=== PATIENT | female | born 2000 | race Caucasian/White ===

== ENCOUNTER 2019-04-06 19:09 | Emergency (ER) | payer MEDICAID ==
[~2019-04-06] VITALS: Ht 167.6 cm; Wt 58.0 kg
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
[2019-04-06] MEDS ORDERED: TETanus/Pertussis (Acell)/Diphther VAC/PF (Tdap-Adult) 0.5ml syringe IM ONE (20:20)
[2019-04-06] MEDS ORDERED: LIDOcaine 1% w/epiNEPHrine 1:200,000 30ml vial IM ONE (20:20)
--- NOTE | 2019-04-06 20:25 | NUR ---
ETA FOR [facility] IS 30MINS
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
[2019-04-06 21:08] LABS: CLARITY,URINE CLEAR (Clear); COLOR,URINE YELLOW (Yellow); GLUCOSE, URINE NEGATIVE (Neg); KETONES,URINE NEGATIVE (Neg); LEUKOCYTE ESTERASE ,URINE NEGATIVE (Neg); NITRITES, URINE NEGATIVE (Neg); OCCULT BLOOD,URINE NEGATIVE (Neg); PH,URINE 7.5 (4.8-8.0); PROTEIN,URINE TRACE mg/dl (Neg); UROBILINOGEN,URINE 0.2 E.U/dL (0.2-1.0)
[2019-04-06 21:09] LABS: URINE HCG NEGATIVE (NEG)
[2019-04-06 21:11] LABS: BASOPHILS % (AUTO) 0.4 % (0-1); EOSINOPHILS # (AUTO) 0.3 X10'3 (0-0.9); EOSINOPHILS % (AUTO) 5.3 % (0-6); HEMATOCRIT 37.7 % (35.0-45.0); HEMOGLOBIN 12.5 g/dl (12.0-16.0); LYMPHOCYTES # (AUTO) 1.1 X10'3 (1.1-4.8); LYMPHOCYTES % (AUTO) 20.7 % (21-51); MEAN CORPUSCULAR HEMOGLOBIN 28.1 PG (27.0-31.0); MEAN CORPUSCULAR HGB CONC 33.1 g/dL (33.0-36.5); MEAN CORPUSCULAR VOLUME 84.9 FL (78-98); MEAN PLATELET VOLUME 7.9 FL (7.4-10.4); MONOCYTES # (AUTO) 0.5 X10'3 (0-0.9); MONOCYTES % (AUTO) 8.7 % (2-12); NEUTROPHILS # (AUTO) 3.4 X10'3 (1.8-7.7); NEUTROPHILS % (AUTO) 64.9 % (42-75); PLATELET COUNT 328 X10'3 (140-440); RED BLOOD COUNT 4.43 X10'6 (4.20-5.60); RED CELL DISTRIBUTION WIDTH 14.9 % (11.5-14.5); WHITE BLOOD COUNT 5.3 X10'3 (4.5-11.0)
[2019-04-06 21:15] LABS: UA COLLECTION TYPE CLN CATCH MIDSTREAM
[2019-04-06 21:16] LABS: AMORPHOUS PHOSPHATES 1+; BACTERIA,URINE FEW /HPF (Neg); RBC,URINE NONE SEEN /HPF (0-2); SQUAMOUS EPITHELIAL CELL,UR NONE SEEN /LPF (FEW); WBC,URINE NONE SEEN /HPF (0-4)
[2019-04-06 21:22] LABS: ALANINE AMINOTRANSFERASE 27 U/L (12-78); ALBUMIN 3.6 G/DL (3.4-5.0); ALKALINE PHOSPHATASE 117 IU/L (20-180); ANION GAP 8 (8-16); ASPARTATE AMINO TRANSFERASE 15 U/L (10-37); BILIRUBIN,TOTAL 0.4 MG/DL (0.1-1.0); BLOOD UREA NITROGEN 12 MG/DL (7-18); BUN/CREATININE RATIO 13.5 (6.6-38.0); CALCIUM 9.1 MG/DL (8.5-10.1); CHLORIDE 106 MMOL/L (99-107); CREATININE 0.89 MG/DL (0.40-0.90); GLUCOSE 103 MG/DL (70-104); POTASSIUM 4.1 MMOL/L (3.5-5.1); SODIUM 138 MMOL/L (135-145); TOTAL CARBON DIOXIDE 24.4 MMOL/L (24-32); TOTAL PROTEIN 7.1 G/DL (6.4-8.2); eGFR 81 ML/MIN
[2019-04-06 21:23] LABS: URINE AMPHETAMINE SCREEN NEGATIVE (Neg); URINE BARBITUATE SCREEN NEGATIVE (Neg); URINE BENZODIAZEPINES SCREEN POSITIVE (Neg); URINE CANNABINOID SCREEN NEGATIVE (Neg); URINE COCAINE SCREEN NEGATIVE (Neg); URINE METHADONE SCREEN NEGATIVE (Neg); URINE OPIATE SCREEN POSITIVE (Neg); URINE PHENCYCLIDINE SCREEN NEGATIVE (Neg)
[2019-04-06 21:29] LABS: ETHANOL < 0.010 GM/DL (0.0-0.010)
[2019-04-06 21:32] LABS: ACETAMINOPHEN < 2.0 UG/ML (10-30)
--- NOTE | 2019-04-06 22:00 | NUR ---
[facility] SPOKE WITH PATIENT WITHOUT HER PARENTS PRESENT
--- NOTE | 2019-04-06 22:10 | NUR ---
[id number] [facility] CASE # - OFFICERS LEFT AND DID NOT TELL RN IF THEY WERE AUTHORIZING A KIT OR NOT. CALL PLACED TO RICH[facility] AND THEY ARE GOING TO HAVE THE OFFICER CALL US BACK.
[2019-04-06] MEDS ORDERED: cloNIDine 0.1 mg tablet PO STA (22:11)
[2019-04-06] MEDS ORDERED: nicotine 14mg patch - 24hr TD ONE (22:20)
--- NOTE | 2019-04-06 22:39 | NUR ---
Packet faxed to [facility]. Unable to confirm receipt of packet as [id number] hours.
[2019-04-06] MEDS ORDERED: Melatonin 3mg tablet PO STA (22:40)
--- NOTE | 2019-04-06 22:53 | NUR ---
PER PAYAM HERNANDEZ STATES NO SART KIT AUTHORIZED
--- NOTE | 2019-04-06 23:25 | NUR ---
MOTHER AAMDA ROME CELL [phone] FATHER HOLLAND OBANDODEN CELL [phone] PARENTS LEFT, PATIENT LYING ON LEFT SIDE AND PATIENT STATING THAT SHE WANTS TO GET SOME SLEEP IF SHE CAN
[2019-04-06] MEDS ORDERED: azithromycin 250mg tablet PO ONE (23:50)
[2019-04-06] MEDS ORDERED: CefTRIAXone 250MG IM Kit w/LIDOcaine IM ONE (23:50)
--- NOTE | 2019-04-07 00:01 | NUR ---
PATIENT APPEARS TO BE SLEEPING ON HER RIGHT SIDE, RR EVEN AND UNLABORED
--- NOTE | 2019-04-07 02:00 | NUR ---
PATIENT APPEARS TO BE SLEEPING ON HER BACK RR EVEN AND UNLABORED
--- NOTE | 2019-04-07 04:07 | NUR ---
PATIENT APPEARS TO BE SLEEPING ON HER RIGHT SIDE. RR EVEN AND UNLABORED.
[2019-04-07] MEDS: cloNIDine 0.1 mg tablet PO PRN ×2 (05:06→19:28)
[2019-04-07] MEDS ORDERED: buprenorphine/naloxone 8mg/2mg SL tablet SL PRN (05:20)
--- NOTE | 2019-04-07 06:30 | NUR ---
Asleep upon change of shift observation. Color and breathing WNL. In line of sight of staff. Will continue to monitor.
[2019-04-07] MEDS ORDERED: ondansetron 4mg rapidly disintigrating tab PO ONE (07:45)
[2019-04-07] MEDS ORDERED: magnesium hydroxide 30ml (MOM) UD suspension PO ONE (07:45)
--- NOTE | 2019-04-07 07:56 | NUR ---
Patient awake and stating she has "abdominal pain." States she has not had a bowel movement in 4 days. Also states she feels "nauseous." Dr. Palacios notified. Orders given for Milk of Magnesia and Zofran. Medications administered as ordered.
--- NOTE | 2019-04-07 08:51 | NUR ---
Margo from [facility] at bedside to evaluate for 5150 criteria. Margo informed staff that patient has a potential for running because "she wants to be outside." Elopement band placed on patient by Beckie Driver.
--- NOTE | 2019-04-07 09:00 | NUR ---
Patient placed on a 72 hour hold for Danger to Self. Patient and mother informed about the hold. (Mother at bedside.) Patient accepted the information without expression. States she remains suicidal when asked. Presents as depressed and forlorn.
[2019-04-07] MEDS ORDERED: LORazepam 2 mg/ml vial IM ONE (09:10)
--- NOTE | 2019-04-07 09:30 | NUR ---
Patient stating "I'm feeling uncomfortable. I feel really bad." Dr. Palacios notified. Medication orders given for Ativan and Suboxone.
[2019-04-07] MEDS: buprenorphine/naloxone 8mg/2mg SL tablet SL PRN ×2 (09:52→20:46)
--- NOTE | 2019-04-07 09:53 | NUR ---
Ativan 2 mg. IM administered without event along with Suboxone 8 mg. SL.
--- NOTE | 2019-04-07 11:00 | NUR ---
Noted to be sleeping at this time. Color and breathing WNL. In line of sight of staff at all times.
[2019-04-07] MEDS ORDERED: ibuprofen tablet 400 MG TABLET PO ONE (12:30)
--- NOTE | 2019-04-07 13:00 | NUR ---
Mother remains at bedside, talking quietly with patient. Lunch tray served to patient. Patient picked at her food. States she is not "really hungry."
--- NOTE | 2019-04-07 14:30 | NUR ---
Patient speaking with boyfriend via telephone in a loving manner. Hoping he comes to visit her this evening.
[2019-04-07] MEDS ORDERED: LORazepam 1 MG tablet PO PRN ×2 (15:20→22:20)
[2019-04-07] MEDS ORDERED: nicotine 21mg patch - 24 hr TD ONE (15:22)
--- NOTE | 2019-04-07 15:40 | NUR ---
Medicated with Ativan 1 mg. PO at this time due to feelings of discomfort from withdrawing from heroin.
--- NOTE | 2019-04-07 17:55 | NUR ---
Asleep until this time of day. States "I'm supposed to have a visitor this evening. Please make sure they get in to see me, even if I'm asleep." Patient informed we would honor her request.
--- NOTE | 2019-04-07 19:00 | NUR ---
mother at bedside. assisted in washing head, arms, feet. braided pt's hair. mother tearful when leaving. "just keep an eye on her please"
[2019-04-07] MEDS ORDERED: Melatonin 3mg tablet PO SCH (21:00)
--- NOTE | 2019-04-07 21:00 | NUR ---
boyfriend at bedside. visited x30 min. no raised voices or distress noted. pt requested meds after boyfriend left. pt verbalized plan of care, waiting for inpatient admission
[2019-04-07] MEDS ORDERED: quetiapine 100mg tablet PO SCH (22:50)
[2019-04-08 05:56] VITALS: BP 98/63
--- NOTE | 2019-04-08 06:01 | NUR ---
reported to days. noted pt resting w/o distress. awaiting inpatient placement. no symptoms w/drawl at this time.
[2019-04-08] MEDS ORDERED: BUPR1FIL3 SL ×2 (06:19→15:03)
[2019-04-08] MEDS: buprenorphine/naloxone 8mg/2mg SL tablet SL PRN (06:42)
[2019-04-08] MEDS ORDERED: FLUoxetine 20mg capsule PO SCH (08:00)
--- NOTE | 2019-04-08 08:29 | NUR ---
Parents are at bedside visiting the patient.
--- NOTE | 2019-04-08 11:08 | NUR ---
mother at bedside. pt bathed in bathroom with mother's help
[2019-04-08] MEDS ORDERED: QUET-1 PO (15:01)
[2019-04-08] MEDS ORDERED: MELA3TAB PO (15:01)
[2019-04-08] MEDS ORDERED: BUPR1FIL5 SL (15:01)
[2019-04-08] MEDS ORDERED: FLUO20CA39 PO (15:01)
[2019-04-08] MEDS ORDERED: quetiapine 100mg tablet PO SCH (21:00)
== END 2019-04-08 14:03 | disposition home or self-care (01) ==
LOC: ER 19:09
DX: S51.812A Laceration without foreign body of left forearm, initial encounter (principal); F32.9 Major depressive disorder, single episode, unspecified; F11.90 Opioid use, unspecified, uncomplicated; F41.9 Anxiety disorder, unspecified; X78.9XXA Intentional self-harm by unspecified sharp object, initial encounter; Y93.89 Activity, other specified; Y92.89 Other specified places as the place of occurrence of the external cause; Y99.9 Unspecified external cause status
CPT/HCPCS: 12002; 36415; 80053; 80305; 80320; 80329; 81001; 81025; 84443; 85025; 90471; 90715; 96372; 99285; J0696; J2060; J3490

== ENCOUNTER 2019-04-08 12:09 | Inpatient (IN) | payer MEDICAID ==
[~2019-04-08] VITALS: Ht 160 cm; Wt 54.6 kg
[~2019-04-08 12:09] MED LIST: BUPR1FIL3 SL
[2019-04-08] MEDS ORDERED: NICOTINE POLACRILEX 2 MG LOZENGE MM PRN (14:55)
[2019-04-08] MEDS ORDERED: loperamide 2mg capsule PO PRN (14:55)
[2019-04-08] MEDS ORDERED: mag hydrox/Alum hydrox/simeth 30ml oral suspension PO PRN (14:55)
[2019-04-08] MEDS ORDERED: magnesium hydroxide 30ml (MOM) UD suspension PO PRN (14:55)
[2019-04-08] MEDS ORDERED: tuberculin, purif. prot. deriv. 5 units/0.1ml ID ONE (14:55)
[2019-04-08] MEDS ORDERED: acetaminophen 325mg tablet PO PRN ×2 (14:55)
[2019-04-08] MEDS ORDERED: FLUO20CA39 PO (15:01)
[2019-04-08] MEDS ORDERED: MELA3TAB PO (15:01)
[2019-04-08] MEDS ORDERED: QUET-1 PO (15:01)
[2019-04-08] MEDS ORDERED: BUPR1FIL5 SL (15:01)
[2019-04-08] MEDS ORDERED: BUPR1FIL3 SL (15:03)
--- NOTE | 2019-04-08 15:25 | NUR ---
Admission Note: Pt admitted to [facility] for DTS at 1405. PT on a 5150. Pt presents depressed, anxious, feels hopeless and helpless with suicidal ideation. Pt states "I dont care about being alive." Pt cut herself in a suicide attempt requiring 10 sutures on her left wrist. Pt denies any previous attempts. Pt is on Suboxone except when using heroin. Pt also uses liquid Xanax. Pt cooperative with the admission process. PT had skin check 2 nurses and changed into clean green scrubs in the shower.
[2019-04-08] MEDS: LORazepam 1 MG tablet PO PRN (15:43)
[2019-04-08] MEDS: buprenorphine/naloxone 2-0.5mg sublingual tablet SL SCH (18:50)
[2019-04-08 20:41] VITALS: BP 133/77
[2019-04-08] MEDS: quetiapine 100mg tablet PO SCH (20:51)
[2019-04-08] MEDS: docusate sod 100mg capsule PO PRN (20:51)
[2019-04-08] MEDS: Melatonin 3mg tablet PO SCH (20:51)
[2019-04-08] MEDS: hydrOXYzine 25 MG tablet PO PRN (20:52)
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
[2019-04-09 07:53] VITALS: BP 90/60
[2019-04-09] MEDS: buprenorphine/naloxone 2-0.5mg sublingual tablet SL SCH ×3 (07:58→20:43)
[2019-04-09] MEDS: nicotine 21mg patch - 24 hr TD SCH (07:58)
[2019-04-09] MEDS: FLUoxetine 20mg capsule PO SCH (07:58)
[2019-04-09 11:22] LABS: CHOL/HDL RATIO 2.6 (0.00-4.99); CHOLESTEROL 153 MG/DL (0-200); HDL CHOLESTEROL 58 MG/DL (35-60); LDL CHOLESTEROL 91 MG/DL (50-100); TRIGLYCERIDES 25 MG/DL (20-135)
[2019-04-09 11:29] LABS: HEMOGLOBIN A1C 5.4 % (4.5-6.2)
[2019-04-09] MEDS: LORazepam 1 MG tablet PO PRN ×2 (13:54→22:04)
--- NOTE | 2019-04-09 15:46 | NUR ---
Nursing Progress Note: Legal hold: 5150 Client on involuntary status for DTS Report received from nurse with use of SBAR: Tavia RN Why are they here: Pt presented to ED with self-inflicted lacerations to left wrist on 04/06. Pt is depressed and stating "I don't care about being alive". Pt has a hx of depression since 8th grade; this is her first suicide attempt. Assessment What has happened this shift: Recieved Pt in bed resting w/o distress after change of shift. She is pleasant and cooperative and willing to engage with staff and others. Attended breakfast and took AM meds w/o issue. Visited with Mom and Dad during visitation time and they interacted well and she appeared pleased they were here. Discussed possible out pt therapy and addictions counseling and tx. Pt appears superficially interested, while wanting to maintain relations with BF who uses heroine. She was anxious in early afternoon after talking with SW and recieved a prn ativan. Attended groups and able to be pleasant with other clients. Went out on patio break in AM and enjoyed it. Denies SI and appears to want to leave as soon as she can. S/I, H/I: Denies A/VH: Denies Sleep: See 7 hrs last night ADL's: Independent, Showered Group attendance: Y Were meds taken: Y Any med S/E: None reported nor noted Mental Status Exam Appearance: Wearing personal attire, hair down and brushed, nonskid socks, clean Eye contact: Direct Behavior: Engaging with peers and staff, visitors, cooperative, pleasant Speech: Normal volume, rate and rhythm Mood: Pleasant Affect: Restricted with brightening Thought process: Linear, Goal-Oriented Thought Content: Wanting to get better, enter a rehab and pursue her career goals Cognition: A&Ox4 Insight: Fair to Good Judgment: Fair Interventions PRN's used: Ativan X 1 Therapeutic interventions: Maintained a safe and therapeutic environment, provided clear and simple instructions, provided medication education and encouraged compliance, provided a quiet environment for sleep, provided reassurance of safety, and maintained Q 15 min safety checks. Restraints/seclusion/emergency medication: N/A Justification of Continued Inpatient Treatment: Pt. requires interruption to current crisis, medication adjustments, and a safe and supportive environment.
[2019-04-09 20:00] VITALS: BP 100/63
[2019-04-09] MEDS: quetiapine 100mg tablet PO SCH (20:43)
[2019-04-09] MEDS: Melatonin 3mg tablet PO SCH (20:43)
[2019-04-09] MEDS: docusate sod 100mg capsule PO PRN (20:44)
[2019-04-09] MEDS: prazosin 1mg capsule PO SCH (20:53)
--- NOTE | 2019-04-09 23:47 | NUR ---
Nursing Progress Note: Legal hold: 5150 Client on involuntary status for DTS Report received from nurse with use of SBAR: Kurt RN Why are they here: Pt presented to ED with self-inflicted lacerations to left wrist on 04/06. Pt is depressed and stating "I don't care about being alive". Pt has a hx of depression since 8th grade; this is her first suicide attempt. Assessment What has happened this shift: Pt meeting with MD during change of shift, then visiting SO. She is pleasant and engages with staff and peers. During 1:1, pt voluntarily expressed that she knows if her SO does not get serious about getting clean, it just won't work out. She needs to step away from him and let him get the help he needs so she can help herself as well. She states "I feel good, and I want to accomplish my goals. I need to find a rehab center. I am nervous to leave here, though. Everyone is so nice." Pt continued, "I know I can do this." Pt had a phone call from her mother, in which she relayed much of the same insight regarding her SO. Pt went on to discuss books she enjoys, and animatedly talked about the Giv.to series and her love of vampire stories. She watch TV and colored before turning in for the evening. S/I, H/I: Denies A/VH: Denies Sleep: See Sleep Assessment ADL's: Independent Group attendance: Y - HS Snack Were meds taken: Y Any med S/E: None reported nor noted Mental Status Exam Appearance: Wearing personal attire, hair down and brushed, nonskid socks, clean Eye contact: Direct Behavior: Engaging with peers and staff, visitors, cooperative, pleasant Speech: Normal volume, rate and rhythm Mood: Pleasant Affect: Expressive Thought process: Linear, Goal-Oriented Thought Content: Wanting to get better, enter a rehab and pursue her career goals Cognition: A&Ox4 Insight: Fair to Good Judgment: Fair Interventions PRN's used: Ativan Colace Therapeutic interventions: Maintained a safe and therapeutic environment, provided clear and simple instructions, provided medication education and encouraged compliance, provided a quiet environment for sleep, provided reassurance of safety, and maintained Q 15 min safety checks. Restraints/seclusion/emergency medication: N/A Justification of Continued Inpatient Treatment: Pt. requires interruption to current crisis, medication adjustments, and a safe and supportive environment.
[2019-04-10] MEDS: buprenorphine/naloxone 2-0.5mg sublingual tablet SL SCH ×3 (07:26→21:06)
[2019-04-10] MEDS: FLUoxetine 20mg capsule PO SCH (07:26)
[2019-04-10] MEDS: nicotine 21mg patch - 24 hr TD SCH (07:28)
[2019-04-10 08:00] VITALS: BP 104/60
--- NOTE | 2019-04-10 12:13 | NUR ---
1:1 DISCHARGE PLANNING SW met w/ pt and her mother in recreation room from 10:42-12:00 to discuss current tx, outpatient options and various barriers pt and family faces. Pt disclosed various concerns for continuing sobriety and managing sx of depression. Pt also reported concerns regarding relationships w/ persons she cares for and how continued recovery may impact those relationships. Pt mother disclosed various dynamics in family system that pt has learned and concerns regarding cognitive distortions pt may now have as an adult. Pt agreed to contact various tx centers to learn where she could enter substance use recovery and what services would be most appropriate for her level of need. Pt goal this day is to create a schedule for herself to follow upon discharge that will assist her in staying busy, managing depressive sx and maintaining her current level of fx. SW will check in w/ pt later this day. Taylor Nelson, [id number]
[2019-04-10] MEDS: LORazepam 1 MG tablet PO PRN (12:42)
--- NOTE | 2019-04-10 17:19 | NUR ---
Nursing Progress Note: Legal hold: 5150 Client on involuntary status for DTS Report received from nurse with use of SBAR: LARY Squires Why are they here: Pt presented to ED with self-inflicted lacerations to left wrist on 04/06. Pt is depressed and stating "I don't care about being alive". Pt has a hx of depression since 8th grade; this is her first suicide attempt. Assessment What has happened this shift: Patient observed sleeping at change of shift. She wakes and asks if she can have her medication prior to breakfast. RN administered as prescribed. Patient is social throughout the day, she attends group and interacts calmly with others. She showers and changes her clothing, dressing changed to sutures, wound clean and intact. Patient is tearful after meeting with mother and outreach and education social worker. She states that she wants to work on sobriety but she loves her BF and is realizing he may not be able to make a commitment to sobriety at this time. Patient is allowed the time she needs to discuss her feelings and reports wanting to improve her life. S/I, H/I: Denies A/VH: Denies Sleep: 6.25 hours NOC ADL's: showered today Group attendance: Y Were meds taken: Y Any med S/E: None reported nor noted Mental Status Exam Appearance: patient clean and well groomed, dressed appropriately in own clothing Eye contact: Direct Behavior: friendly and cooperative Speech: soft tone, normal rate and rhythm Mood: anxious, reports she is scared to move away Affect: congruent to mood and feelings Thought process: Linear, Goal-directed Thought Content: entering rehab and life changes Cognition: A&Ox4 Insight: Fair to Good Judgment: Fair Interventions PRN's used: Ativan Therapeutic interventions: 1:1 therapeutic assessment, maintained safe therapeutic milieu, provided active listening with positive feedback, provided medication education as needed, monitored for change in behavior and needed intervention. Q15 min safety checks. Restraints/seclusion/emergency medication: N/A Justification of Continued Inpatient Treatment: Therapeutic support and medication management needed to provide stabilization, prevent decompensation, decreasing risk to patient for readmittance to inpatient unit.
[2019-04-10 20:00] VITALS: BP 110/63
[2019-04-10] MEDS: prazosin 1mg capsule PO SCH (21:06)
[2019-04-10] MEDS: Melatonin 3mg tablet PO SCH (21:10)
[2019-04-10] MEDS: quetiapine 100mg tablet PO SCH (21:10)
--- NOTE | 2019-04-11 01:29 | NUR ---
Nursing Progress Note: Legal hold: 5150 Client on involuntary status for DTS Report received from nurse with use of SBAR: Kassy RN Why are they here: Pt presented to ED with self-inflicted lacerations to left wrist on 04/06. Pt is depressed and stating "I don't care about being alive". Pt has a hx of depression since 8th grade; this is her first suicide attempt. Assessment What has happened this shift: Patient is up around unit at change of shift. She is visible in the group room and recreation room this evening politely interacting with other clients and reading a book. She spends visiting hours with her family in the group room. After visiting she meets with staff for a 1:1 assessment in the observation room. She expresses that she is fearful of sobriety and more so fearful going through withdrawal. She expresses that she really wants to go to treatment, and that she wants nothing more than to become sober, but she feels overwhelmed as well. She is goal oriented and stated that she even told her boyfriend that they need to take a break and stop contact while she figures out her going to treatment. She expresses that she still has depression but denies SI at this time. She is compliant with all her evening medications and goes to bed after talking with a family member on the phone for a bit. S/I, H/I: Denies A/VH: Denies Sleep: See Sleep Assessment ADL's: Independent Group attendance: No group this shift Were meds taken: Y Any med S/E: None reported nor noted Mental Status Exam Appearance: Well groomed Eye contact: Direct Behavior: Engaging with peers and staff, visitors, cooperative, pleasant Speech: Normal volume, rate and rhythm Mood: Pleasant Affect: Expressive Thought process: Linear, Goal-Oriented Thought Content: Wanting to get better, enter a rehab Cognition: A&Ox4 Insight: Good Judgment: Fair Interventions PRN's used: Tylenol Therapeutic interventions: 1:1 assessment. Maintained a safe and therapeutic environment, provided clear and simple instructions, provided medication education and encouraged compliance, provided a quiet environment for sleep, provided reassurance of safety, and maintained Q 15 min safety checks. Restraints/seclusion/emergency medication: N/A Justification of Continued Inpatient Treatment: Pt. requires interruption to current crisis, medication adjustments, and a safe and supportive environment.
[2019-04-11 07:21] VITALS: BP 90/54
[2019-04-11] MEDS: buprenorphine/naloxone 2-0.5mg sublingual tablet SL SCH ×3 (07:28→20:34)
[2019-04-11] MEDS: FLUoxetine 20mg capsule PO SCH (07:28)
[2019-04-11] MEDS: nicotine 21mg patch - 24 hr TD SCH (07:29)
[2019-04-11] MEDS: LORazepam 1 MG tablet PO PRN (13:41)
--- NOTE | 2019-04-11 17:33 | NUR ---
Nursing Progress Note: Legal hold: 5150 - DTS Report received from nurse with use of SBAR: Henny Jack RN Why are they here: Pt presented to ED with self-inflicted lacerations to left wrist on 04/06. Pt is depressed and stating "I don't care about being alive". Pt has a hx of depression since 8th grade; this is her first suicide attempt. Assessment What has happened this shift: Patient observed sleeping at change of shift. She wakes and requests tea and sits in the tv room looking out the window. She reports feeling anxious about discharging and states that she is aware she will need to make life changes in order to stop using drugs. She reports talking to her boyfriend last night and broke it off with him. She reports that she doesnt believe that he will stop using Heroin despite him promising to go to [employer] [facility] [employer]. She reports, He says that he is quitting for me which means he wont really stop using. Patient is social throughout the day, she attends group and interacts calmly with others. Her father visited her briefly today. Mother called and was concerned because pt told her she was leaving today or tomorrow. She showers and changes her clothing in AM, dressing changed on left arm sutures, wound clean and intact. Patient is allowed the time she needs to discuss her feelings and reports wanting to improve her life. She becomes tearful after signing VOL paperwork and states she was anxious to go home and now feels like she is trapped. RN attempted to soothe her concern and educated her on her VOL status. We also discussed her discharge and the benefits of following up with outpatient tx and rehab facilities. She is able to verbalize her understanding of this. S/I, H/I: Denies A/VH: Denies Sleep: 6 hours NOC ADL's: showered today Group attendance: Y Were meds taken: Y Any med S/E: None reported nor observed Mental Status Exam Appearance: patient clean and well groomed, dressed appropriately in own clothing Eye contact: Direct Behavior: friendly and cooperative Speech: soft tone, normal rate and rhythm Mood: anxious, reports she is scared for discharge and sobriety Affect: congruent to mood and feelings Thought process: Linear, Goal-directed Thought Content: entering rehab, life changes, boyfriend & family Cognition: A&Ox4 Insight: Fair to Good Judgment: Fair Interventions PRN's used: none Therapeutic interventions: 1:1 therapeutic assessment, maintained safe therapeutic milieu, provided active listening with positive feedback, provided medication education as needed, monitored for change in behavior and needed intervention. Q15 min safety checks. Restraints/seclusion/emergency medication: N/A Justification of Continued Inpatient Treatment: Therapeutic support and medication management needed to provide stabilization, prevent decompensation, decreasing risk to patient for readmittance to inpatient unit.
[2019-04-11 19:00] VITALS: BP 117/73
--- NOTE | 2019-04-11 19:50 | NUR ---
DISCHARGE PLANNING: Jason FRANKLIN asked this SW to contact [facility] regarding residential Tx. Point of contact, Karime @ [phone], had left for the weekend, LM asking her to CB Sunday. Updated Jason FRANKLIN, he asked I discuss other options w/ pt/ Met w/ pt in community room. She was disappointed but agreed to stay till Sunday and try to schedule appt to meet w/ Karime Sunday for residential or IOP Tx prior to D/C. Discussed other D/C options, her parents don't like [facility], She didn't want to go w/ [facility] because over 90 days-out of [facility] and her dad was unhappy w/ the [facility] program, we discussed pros and cons - pt agreed some to to be beneficial points. Also discussed triggers, effects of using & Suboxone, craving for both heroin and nicotine, decided to get lozenge. Pt agreed to think about/consider options/ things we discussed. Updated Jason FRANKLIN. Ema Smith, [facility]
[2019-04-11] MEDS: prazosin 1mg capsule PO SCH (20:34)
[2019-04-11] MEDS: Melatonin 3mg tablet PO SCH (20:35)
[2019-04-11] MEDS: quetiapine 100mg tablet PO SCH (20:35)
--- NOTE | 2019-04-11 23:42 | NUR ---
Nursing Progress Note: Legal hold: 5150 - DTS Report received from LARY Elena, with use of SBAR: Why are they here: Pt presented to ED with self-inflicted lacerations to left wrist on 04/06. Pt is depressed and stating "I don't care about being alive". Pt has a hx of depression since 8th grade; this is her first suicide attempt. Assessment What has happened this shift: This patient is in the day room at shift change. She is doing art work and socializing with other patients. She presents as outgoing. She is well oriented, W/D, she has good color. The patient states she went to group today. She had a normal BM yesterday. Patient is clean, she is well groomed. The patient states she went to group today. This patient states she still feels depressed. She denies suicidal ideation or homicidal ideation. She denies voices. The patients thought process is linear. The patient speaks about a fragile relationship with her boyfriend who is also a heroin user. She states that he is going to enter rehab. The patient has had her Lexapro increased. It is probable that she will be discharged to "[facility]," perhaps in a few days. This patient has been medication compliant. She was advised by this expert medical writer that she is in a safe place. S/I, H/I: Denies A/VH: Denies Sleep: Will tally in am. ADL's: Showered today Group attendance: Yes, on day shift. Were med's taken: Yes Any med S/E: None reported nor observed Mental Status Exam Appearance: Patient clean and well groomed, dressed appropriately in own clothing Eye contact: Direct Behavior: Friendly and cooperative Speech: Soft tone, normal rate and rhythm Mood: anxious, reports she is scared for discharge and sobriety Affect: Congruent to mood and feelings Thought process: Linear, Goal-directed Thought Content: entering rehab, life changes, boyfriend & family Cognition: A&Ox4 Insight: Fair to Good Judgment: Fair Interventions PRN's used: none Therapeutic interventions: 1:1 therapeutic assessment, maintained safe therapeutic milieu, provided active listening with positive feedback, provided medication education as needed, monitored for change in behavior and needed intervention. Q15 min safety checks. Restraints/seclusion/emergency medication: N/A Justification of Continued Inpatient Treatment: Therapeutic support and medication management needed to provide stabilization, prevent decompensation, decreasing risk to patient for readmittance to inpatient unit.
[2019-04-12] MEDS: nicotine 21mg patch - 24 hr TD SCH (07:36)
[2019-04-12] MEDS: buprenorphine/naloxone 2-0.5mg sublingual tablet SL SCH ×3 (07:36→20:51)
[2019-04-12] MEDS: FLUoxetine 20mg capsule PO SCH (07:37)
[2019-04-12 07:42] VITALS: BP 92/55
--- NOTE | 2019-04-12 12:34 | NUR ---
Initial: Pt admit with depression. Currently on regular diet with documented 75-100% PO intake meeting nutrient needs. LBM 04/11. No edema or wounds. No nutrition diagnosis at this time. Will continue to follow. Recommendations: 1) Continue with regular diet 2) Weekly wts Addendum: 04/12/19 at [address] Amended: Links added.
[2019-04-12] MEDS: docusate sod 100mg capsule PO PRN (13:06)
[2019-04-12] MEDS: LORazepam 1 MG tablet PO PRN ×2 (13:07→20:50)
--- NOTE | 2019-04-12 16:57 | NUR ---
DISCHARGE PLANNING: Met w/ pt and her mother, discussed outpt and inpt Tx options. Pt determined [facility] would be the best placement for her as it is secular based and a 90 day program. Her mother, Marsha Weston @ [phone], agreed she would be able to pay for an $800 a mo. bed, if available. Explained I would need to reach out to Art for availability and to schedule an interview. Spoke to both pt's parents briefly in my office. Answered questions, reassured concerns about pt's safety and said will call once have info. E-mailed Art explaining situation, he responded that he can interview pt 9am Sunday but it may take him a day or to to make bed arrangements. Updated parents and they would need $800 at admittance-they agreed, Jason FRANKLIN and pt. Informed pt she may need to stay an extra day or so, as Art would want to bring straight from here to there. Pt was initially not happy about that. However, later during group, pt agreed that would probably be the best thing because her brain was already starting to scream for more heroin. Updated Jason FRANKLIN. Ema Smith, [facility]
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
[2019-04-12 19:00] VITALS: BP 111/69
[2019-04-12] MEDS: quetiapine 100mg tablet PO SCH (20:50)
[2019-04-12] MEDS: prazosin 1mg capsule PO SCH (20:51)
[2019-04-12] MEDS: Melatonin 3mg tablet PO SCH (20:51)
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
[2019-04-13] MEDS: buprenorphine/naloxone 2-0.5mg sublingual tablet SL SCH ×3 (07:47→20:31)
[2019-04-13] MEDS: FLUoxetine 20mg capsule PO SCH (07:47)
[2019-04-13] MEDS: docusate sod 100mg capsule PO PRN (07:47)
[2019-04-13] MEDS: nicotine 21mg patch - 24 hr TD SCH (07:50)
[2019-04-13 08:00] VITALS: BP 85/50
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
[2019-04-13] MEDS: LORazepam 1 MG tablet PO PRN ×2 (14:54→20:31)
--- NOTE | 2019-04-13 15:25 | NUR ---
Voice Systems Engineer 1:1 The undersigned clinician met individually with patient per request from treatment team. Intervention= Attuned empathic listening using biolateral sound and resource eye position. Pt. reported a reduction in her emotional distress felt in her stomach from a 5 to "low". Plan= continue to work with treatment team to support pt. Maricruz YAP
[2019-04-13 19:55] VITALS: BP 97/58
[2019-04-13] MEDS: Melatonin 3mg tablet PO SCH (20:30)
[2019-04-13] MEDS: prazosin 1mg capsule PO SCH (20:30)
[2019-04-13] MEDS: quetiapine 100mg tablet PO SCH (20:31)
--- NOTE | 2019-04-14 01:39 | NUR ---
Nursing Progress Note: Legal hold: Voluntary. Client on involuntary status for DTS. Report received from APOLONIA Elena with use of SBAR. Why are they here: Pt presented to ED with self-inflicted laceration to left wrist on 04/06. Pt is depressed and stating "I don't care about being alive". Pt has a hx of depression since 8th grade; this is her first suicide attempt and hospitalization. Patient has been on heroin, meth for last 2 years. Assessment What happened this shift: The patient was seen in the group room at shift change. Later she was seen at her bedside after her visit with her mother. The patient states that she talked to her boyfriend today. "He was slurring his words, I can tell he was high. I'm just going to have to be done with him, he's not gonna get clean." The patient seems to really be invested in going to [facility]. She's starting to realize that she can't expect others to feel like she does. She's pleasant to talk to, communicates well, cares about others, and has good family support. She has the potential to make something of herself if she will get off that terrible drug. While here she is doing what she needs to do. S/I, H/I: Denies A/VH: Denies Sleep: Sleeping since HS med pass. ADL's: Independent Group attendance: No groups at night. Were meds taken: Yes. Any med S/E: None reported or observed. Mental Status Exam Appearance: Clean, well groomed, hair brushed, wearing personal clothes. Eye contact: Direct Behavior: Outgoing, engages with peers easily. Speech: Clear, normal rate/rhythm. Mood: Pleasant, good. Affect: Expressive. Thought process: Linear, Goal-Oriented Thought Content: Focused on getting thru re-hab, then start life again. Cognition: A&Ox4 Insight: Fair. Judgment: Poor. Interventions PRN's used: Ativan. Therapeutic interventions: Maintained a safe and therapeutic environment, provided clear and simple instructions, provided medication education and encouraged compliance, provided a quiet environment for sleep, provided reassurance of safety, and maintained Q 15 min safety checks. Restraints/seclusion/emergency medication: N/A Justification of Continued Inpatient Treatment: Pt. requires interruption to current crisis, medication adjustments, and a safe and supportive environment.
[2019-04-14 08:00] VITALS: BP 93/57
[2019-04-14] MEDS: nicotine 21mg patch - 24 hr TD SCH (08:00)
[2019-04-14] MEDS: buprenorphine/naloxone 2-0.5mg sublingual tablet SL SCH ×2 (09:07→13:17)
[2019-04-14] MEDS: docusate sod 100mg capsule PO PRN (09:07)
[2019-04-14] MEDS: FLUoxetine 20mg capsule PO SCH (09:07)
[2019-04-14] MEDS: LORazepam 1 MG tablet PO PRN (10:39)
--- NOTE | 2019-04-14 14:49 | NUR ---
Nursing Progress Note Legal hold: Voluntary. Client on involuntary status for DTS Report received from LARY Ruiz with use of SBAR Why are they here: Pt presented to ED with self-inflicted laceration to left wrist on 04/06. Pt is depressed and stating "I don't care about being alive". Pt has a hx of depression since 8th grade; this is her first suicide attempt and hospitalization. Patient has been on heroin, meth for last 2 years. Assessment Patient awake for breakfast, appears tired. Patient has 09:00 appointment for C[facility] and is anxious about this meeting. Pt. states afterwards that she was accepted into program, but wants to D/C home for a day to see her family and be with her dogs and pack her things. Informed RIGOBERTO Thompson, who stated he would advise against her, but that she was voluntary. Taylor HERNADEZ spoke with her and told her that she did not think it was a good idea. Patient was euphoric on unit for last few days, is now sitting slumped over table in group room with head in hands. Called her to her room to speak privately and told her that it is not a good sign of stabilization to see her go from euphoria into deep depression. Earlier she was insisting on seeing Taylor and Bill immediately, was told that Bill was at lunch and then to ER, would get msg. to Taylor. Instructed her that she needs to practice "delayed gratification". That the real world does not work this way. People have lunch times, other patients to see. That she will if she goes to college she will need to make short term and snf goals, because there will be no immediate gratification going to school process to degree. Pt. is thankful for caring, honest approach and states "I know you all want what's best for me". S/I, H/I: Denies A/VH: Denies Sleep: 6.5 hrs. NOC. ADL's: Independent Group attendance: Yes. Were meds taken: Yes. Suboxone scheduled for withdrawal. Any med S/E: None reported or reported Mental Status Exam Appearance: Wearing personal attire, hair down and brushed, nonskid socks, clean Eye contact: Direct Behavior: Engaging with peers and staff, visitors, cooperative, pleasant to depressed and hopeless. Speech: Normal volume, rate and rhythm. Clear. Mood: Euphoric to hopelessness/depressed state. Affect: Expressive, brightening to flat. Thought process: Linear, Goal Oriented. Wanting to go home for a day before [place]. Thought Content: Wanting to get better, enter a rehab and pursue her career goals Cognition: A&Ox4 Insight: Fair. Judgment: Poor. Interventions PRN's used: Aurelio Atjolene Therapeutic interventions: Maintained a safe and therapeutic environment, provided clear and simple instructions, provided medication education and encouraged compliance, encouraged increased p.o intake of fluids and group attendance. Dressing changes. Provided a quiet environment for sleep, provided reassurance of safety, and maintained Q 15 min safety checks. Restraints/seclusion/emergency medication: N/A Justification of Continued Inpatient Treatment: Pt. requires interruption to current crisis, medication adjustments, and a safe and supportive environment. Addendum: 04/14/19 at 1540 by Leona Delgado RN Patient's boyfriend called and talked to patient and stated that he was breaking up with her and he wishes that she had in suicide attempt. Atarax given and will follow-up with therapeutic conversation.
[2019-04-14] MEDS: hydrOXYzine 25 MG tablet PO PRN (15:36)
[2019-04-14] MEDS ORDERED: FLUO20CA22 PO (15:45)
[2019-04-14] MEDS ORDERED: QUET100T33 PO (15:45)
--- NOTE | 2019-04-14 17:15 | NUR ---
DISCHARGE NOTE: Patient stated desire to leave home for the day to be able to see her family, dogs, and pack belongings in order to be admitted to [facility] 04/15 or 04/16. Patient states strong desire to go into rehab., and never use drugs again. Has supportive family, that I'm sure will guarantee her safety until they take her to [facility]. Patient denies SI. Discharged in stable condition. Father here to take patient home. All belongings given to patient.
== END 2019-04-14 17:15 | disposition home or self-care (01) | DRG 751 ==
LOC: ADULT MH 12:09
PROVIDERS: ADMIT Psychiatry & Neurology Psychiatry; ATTEND Psychiatry & Neurology Psychiatry
DX: F33.2 Major depressive disorder, recurrent severe without psychotic features (principal); F11.20 Opioid dependence, uncomplicated; F43.10 Post-traumatic stress disorder, unspecified; S61.512A Laceration without foreign body of left wrist, initial encounter; F17.200 Nicotine dependence, unspecified, uncomplicated; F41.9 Anxiety disorder, unspecified; T74.21XA Adult sexual abuse, confirmed, initial encounter; X78.8XXA Intentional self-harm by other sharp object, initial encounter; Z79.899 Other long term (current) drug therapy; Z80.3 Family history of malignant neoplasm of breast; Z87.440 Personal history of urinary (tract) infections; Z71.6 Tobacco abuse counseling; Y93.89 Activity, other specified; Y92.89 Other specified places as the place of occurrence of the external cause; Y99.8 Other external cause status; Y07.03 Male partner, perpetrator of maltreatment and neglect
CPT/HCPCS: 36415; 80061; 83036; 87070; 99285; Q0177